=== PATIENT | female | born 1965 | race Caucasian/White ===

== ENCOUNTER → 2017-09-08 | Outpatient (CLI) | payer OTHER ==
[~2017-09-08] MED LIST: BENTYL10 MG PO; DIATRIZOATE MEGL/DIATRIZOA SOD 30 ML BTL PO ONE; IOPAMIDOL 370 MG/ML 200 ML INFUS..BTL INJ ONE; PANTOPRAZOLE SO40 MG PO; PAXIL CR25 MG PO; PREVACID15 M1 PO; SODIUM CHLORIDE 0.9% 50ML 50 ML ONE; VITAMIN C500 M4 PO
--- NOTE | 2017-09-08 09:06 | Diagnostic Imaging Report ---
PROCEDURE: CT ABDOMEN AND PELVIS WITH CONTRAST TECHNIQUE: The abdomen and pelvis were scanned utilizing a multidetector helical scanner from the diaphragm to the lesser trochanter after the IV administration of 100 cc of Isovue 370 and the oral administration of Gastrografin. Coronal and sagittal multiplanar reformations were obtained. COMPARISON: None. INDICATIONS: LEFT LOWER QUADRENT PAIN FINDINGS: LOWER THORAX: Normal. HEPATOBILIARY: Calcified granuloma in segment 4A and segment 5. Otherwise no focal hepatic lesion. No intrahepatic biliary ductal dilatation. The gallbladder is unremarkable. SPLEEN: Calcified granulomata throughout the spleen. No splenomegaly. PANCREAS: No focal masses or ductal dilatation. ADRENALS: No adrenal nodules. KIDNEYS/URETERS: No hydronephrosis, stones, or solid mass lesions. PELVIC ORGANS/BLADDER: The urinary bladder is incompletely distended but otherwise unremarkable. The uterus is anteflexed and appears normal. Bilateral tubal ligation devices. No adnexal mass. PERITONEUM / RETROPERITONEUM: No ascites. No pneumoperitoneum. LYMPH NODES: No pelvic sidewall, retroperitoneal, or mesenteric lymphadenopathy. VESSELS: Atherosclerotic calcification of the abdominal aorta, major branch vessels, and iliac arterial systems, without aneurysmal dilatation. The right hepatic artery is replaced to the superior mesenteric artery. The portal vein, splenic vein, and central superior mesenteric vein are patent. GI TRACT: The large bowel shows no evidence of distention or wall thickening, though the distal sigmoid colon and rectum are collapsed and poorly evaluated. The appendix has been removed with radiopaque suture material adjacent to the cecum. Prominence of the gastric rugal folds is likely a consequence of under distention. No small bowel dilatation to suggest obstruction. BONES AND SOFT TISSUES: No focal soft tissue abnormalities. No osseous destructive lesions. Multilevel degenerative disc changes of the lumbar spine. IMPRESSION: No acute intra-abdominal or pelvic CT abnormalities. Prominent gastric wall is likely a consequence of underdistention, though gastritis may have a similar appearance in the appropriate clinical context. Atherosclerotic vascular disease. Evidence of prior granulomatous infection. Dictated by: Armando Weber M.D. on 09/08/2017 at 9:11 Electronically approved by: Armando Weber M.D. on 09/08/2017 at 9:11
== END ==
LOC: CT 07:22
PROVIDERS: ATTEND Family Medicine
DX: K62.5 Hemorrhage of anus and rectum (principal)
CPT/HCPCS: 74177; Q9967